=== PATIENT | female | born 2000 | race Two or more races ===

== ENCOUNTER 2022-04-11 09:00 | Emergency (ER) | payer OTHER ==
[~2022-04-11] VITALS: Ht 167.6 cm; Wt 67.2 kg
[2022-04-11 09:29] VITALS: BP 134/76
[2022-04-11] MEDS ORDERED: FLUORESCEIN SOD OPTH TEST STRIP OP ONE (09:45)
[2022-04-11] MEDS ORDERED: CIP03OS RIGHTEYE (10:05)
== END 2022-04-11 10:25 | disposition home or self-care (01) ==
LOC: ER 09:00
DX: S05.01XA Injury of conjunctiva and corneal abrasion without foreign body, right eye, initial encounter (principal); H10.31 Unspecified acute conjunctivitis, right eye; X58.XXXA Exposure to other specified factors, initial encounter; Y93.89 Activity, other specified; Y92.89 Other specified places as the place of occurrence of the external cause; Y99.8 Other external cause status